=== PATIENT | female | born 1955 | race Caucasian/White ===

== ENCOUNTER 2017-10-04 10:06 | Outpatient (CLI) | payer OTHER | END 2017-10-04 10:07 | disposition home or self-care (01) | LOC: BICMAMMO 10:06 | PROVIDERS: ATTEND Family Medicine | DX: Z12.31 Encounter for screening mammogram for malignant neoplasm of breast (principal); R92.1 Mammographic calcification found on diagnostic imaging of breast; Z80.3 Family history of malignant neoplasm of breast | CPT/HCPCS: 77063; 77067 ==

== ENCOUNTER 2017-10-10 09:55 | Outpatient (CLI) | payer OTHER | END 2017-10-10 09:56 | disposition home or self-care (01) | LOC: BICMAMMO 09:55 | PROVIDERS: ATTEND Family Medicine | DX: R92.8 Other abnormal and inconclusive findings on diagnostic imaging of breast (principal); N63.20 Unspecified lump in the left breast, unspecified quadrant; R92.1 Mammographic calcification found on diagnostic imaging of breast; Z80.3 Family history of malignant neoplasm of breast | CPT/HCPCS: G0206-LT; G0279 ==

== ENCOUNTER 2019-03-24 08:21 | Outpatient (CLI) | payer MEDICARE ==
--- NOTE | 2019-03-24 09:09 | MMO ---
Bilateral MAMMO Bilat Screen [facility]. CLINICAL HISTORY: Patient is 64 years old and is seen for screening. The patient has the following family history of breast cancer: mother. The patient has no personal history of cancer. VIEWS: The views performed were: bilateral craniocaudal; bilateral craniocaudal with tomosynthesis; and bilateral mediolateral oblique with tomosynthesis. FILMS COMPARED: The present examination has been compared to prior imaging studies performed at [facility] on 10/04/2017 and 10/10/2017, and at [facility] on 05/03/2011. MAMMOGRAM FINDINGS: There are scattered fibroglandular densities. Benign calcifications are noted bilaterally. There are no suspicious masses, suspicious calcifications, or new areas of architectural distortion. IMPRESSION: THERE IS NO MAMMOGRAPHIC EVIDENCE OF MALIGNANCY. A ROUTINE FOLLOW-UP MAMMOGRAM IN 1 YEAR IS RECOMMENDED. THE RESULTS OF THIS EXAM WERE SENT TO THE PATIENT. ACR BI-RADS Category 2 - Benign finding MAMMOGRAPHY NOTE: 1. A negative mammogram report should not delay a biopsy if a dominant of clinically suspicious mass is present. 2. Approximately 10% to 15% of breast cancers are not detected by mammography. 3. Adenosis and dense breasts may obscure an underlying neoplasm. Reported by: Mandy WINTERS Electonically Signed: [id number]
== END 2019-03-24 08:22 | disposition home or self-care (01) ==
LOC: BICMAMMO 08:21
PROVIDERS: ATTEND Family Medicine
DX: Z12.31 Encounter for screening mammogram for malignant neoplasm of breast (principal); Z80.3 Family history of malignant neoplasm of breast
CPT/HCPCS: 77063; 77067

== ENCOUNTER 2021-08-07 09:05 | Inpatient (IN) | payer MEDICARE ==
[2021-08-07] MEDS ORDERED: Heparin 1,000 UNITS/ML VIAL ONE (09:44)
[2021-08-07 12:20] VITALS: BMI 44.1
[2021-08-07] MEDS ORDERED: Ondansetron ODT 4 MG TAB PO PRN (12:23)
[2021-08-07] MEDS ORDERED: hydrALAZINE 20 MG/ML VIAL SLOW IVP PRN (12:23)
[2021-08-07] MEDS ORDERED: Ondansetron PF 4 MG/2 ML Vial IVP PRN (12:23)
[2021-08-07] MEDS: Pantoprazole 40 MG VIAL IVP SCH (12:58)
[2021-08-07] MEDS: Sodium Chloride 0.9% 1,000 ML IV SCH (13:01)
[2021-08-07] MEDS ORDERED: GoLYTELY 4,000 ml Bottle PO SCH (13:45)
[2021-08-07] MEDS: Pramipexole Di-HCl 0.125 MG TAB PO SCH ×2 (14:48→21:37)
[2021-08-07] MEDS: Acetaminophen 500 MG TAB PO PRN (16:35)
[2021-08-07 16:43] LABS: SARS-CoV-2 PCR by NAA Not Detected (NotDetected)
[2021-08-07 20:40] LABS: Hemoglobin 8.2 g/dL (12.0-16.0); Platelet Count 202 thou/uL (130-400)
[2021-08-08] MEDS: Pantoprazole 40 MG VIAL IVP SCH ×2 (00:18→13:12)
[2021-08-08] MEDS ORDERED: Pramipexole Di-HCl 0.125 MG TAB PO SCH (01:24)
[2021-08-08] MEDS: Sodium Chloride 0.9% 1,000 ML IV SCH ×2 (01:49→15:03)
[2021-08-08 07:00] LABS: #Eosinphils 0.2 thou/uL (0.0-0.7); #Lymphocytes 2.9 thou/uL (1.20-3.40); #Monocytes 0.7 thou/uL (0.11-0.59); #Neutrophils 3.3 thou/uL (1.40-6.50); %Eosinophils 3.4 % (0.0-10.0); %Lymphocytes 40.4 % (21.0-51.0); %Monocytes 9.7 % (0.0-10.0); %Neutrophils 46.5 % (42.0-75.0); Hemoglobin 7.7 g/dL (12.0-16.0); Mean Corpuscular HGB CONC 33.9 g/dL (32.0-36.0); Mean Corpuscular Volume 91.5 fL (78.0-98.0); Mean Platelet Volume 6.1 fL (7.4-10.4); Platelet Count 254 thou/uL (130-400); RBC Distribution Width 12.9 % (11.5-14.5); Red Blood Cell (RBC) Count 2.48 mill/uL (4.20-5.40); White Blood Cell (WBC) Count 7.1 thou/uL (4.8-10.8)
[2021-08-08 07:04] LABS: ALT (SGPT) 23 U/L (8-55); AST (SGOT) 23 U/L (5-34); Albumin 2.9 g/dL (3.4-4.8); Alkaline Phosphatase 55 U/L (40-110); Anion Gap 12 mmol/L (10-20); BUN (Urea Nitrogen) 8 mg/dL (9.8-20.1); Bilirubin, Total 0.3 mg/dL (0.2-1.2); Calc. Creatinine Clearance 146 mL/min (70-130); Calcium 7.3 mg/dL (7.8-10.44); Carbon Dioxide 21 mmol/L (23-31); Chloride 112 mmol/L (98-107); Globulin 1.9 g/dL (2.4-3.5); Glucose 139 mg/dL (80-115); Potassium 3.2 mmol/L (3.5-5.1); Protein, Total 4.8 g/dL (5.8-8.1); Sodium 142 mmol/L (136-145)
[2021-08-08] MEDS: Pramipexole Di-HCl 0.25 MG TAB PO SCH ×3 (09:44→20:11)
[2021-08-08] MEDS ORDERED: Fentanyl 100 MCG/2 ML VIAL ONE (10:52)
[2021-08-08] MEDS ORDERED: Lidocaine 1% PF 5 ML VIAL ONE (11:00)
[2021-08-08] MEDS ORDERED: PROPOFOL 200 MG/20 ML VIAL ONE (11:00)
[2021-08-08] MEDS: Acetaminophen 500 MG TAB PO PRN (18:07)
[2021-08-08] MEDS ORDERED: Non-Formulary Item 1 EACH (Pramipexole Di-Hcl [Mirapex] 0.5 MG Tablet) PO SCH (21:00)
[2021-08-08 22:21] LABS: Troponin I 0.015 ng/mL (< 0.028)
[2021-08-09 05:01] LABS: Hemoglobin 5.2 g/dL (12.0-16.0)
[2021-08-09 05:29] LABS: Anion Gap 8 mmol/L (10-20); BUN (Urea Nitrogen) 6 mg/dL (9.8-20.1); Calc. Creatinine Clearance 138 mL/min (70-130); Calcium 7.2 mg/dL (7.8-10.44); Carbon Dioxide 23 mmol/L (23-31); Chloride 113 mmol/L (98-107); Glucose 157 mg/dL (80-115); Sodium 141 mmol/L (136-145)
[2021-08-09 05:34] LABS: Potassium 2.9 mmol/L (3.5-5.1)
[2021-08-09] MEDS ORDERED: Electrolyte Replacement Protocol 1 EACH FS SCH (06:45)
[2021-08-09 07:25] LABS: Magnesium 1.8 mg/dL (1.6-2.6)
[2021-08-09] MEDS ORDERED: Magnesium 2 GM/50 ML 2 GM in Premix Bag 1 BAG IVPB SCH (08:00)
[2021-08-09] MEDS: Rosuvastatin 20 MG TAB PO SCH (08:09)
[2021-08-09] MEDS: Potassium Chloride 20 MEQ TAB PO SCH ×2 (08:09→12:39)
[2021-08-09] MEDS: Pramipexole Di-HCl 0.25 MG TAB PO SCH ×3 (08:10→20:35)
[2021-08-09 10:01] LABS: Hemoglobin 6.1 g/dL (12.0-16.0)
[2021-08-09 13:36] LABS: Hemoglobin 7.6 g/dL (12.0-16.0)
[2021-08-10 08:17] LABS: Hemoglobin 6.6 g/dL (12.0-16.0)
[2021-08-10 08:33] LABS: ALT (SGPT) 20 U/L (8-55); AST (SGOT) 22 U/L (5-34); Albumin 2.7 g/dL (3.4-4.8); Alkaline Phosphatase 49 U/L (40-110); Anion Gap 9 mmol/L (10-20); BUN (Urea Nitrogen) 8 mg/dL (9.8-20.1); Bilirubin, Total 0.3 mg/dL (0.2-1.2); Calc. Creatinine Clearance 136 mL/min (70-130); Calcium 7.4 mg/dL (7.8-10.44); Carbon Dioxide 24 mmol/L (23-31); Chloride 112 mmol/L (98-107); Globulin 1.7 g/dL (2.4-3.5); Glucose 144 mg/dL (80-115); Potassium 3.7 mmol/L (3.5-5.1); Protein, Total 4.4 g/dL (5.8-8.1); Sodium 141 mmol/L (136-145)
[2021-08-10] MEDS: Pramipexole Di-HCl 0.25 MG TAB PO SCH (09:35)
[2021-08-10] MEDS: Rosuvastatin 20 MG TAB PO SCH (09:36)
[2021-08-10] MEDS ORDERED: Magnesium 2 GM/50 ML 2 GM in Premix Bag 1 BAG IVPB SCH (10:00)
[2021-08-10 12:59] VITALS: BP 144/74
[2021-08-10 13:52] VITALS: TEMP 98
== END 2021-08-10 15:04 | disposition short-term general hospital (02) | DRG 378 ==
LOC: T4-B 11:38
PROVIDERS: ADMIT Family Medicine; ATTEND Family Medicine
PROC: 0DB68ZX Excision of Stomach, Via Natural or Artificial Opening Endoscopic, Diagnostic (ICD-10-PCS; principal; 2021-08-08)
PROC: 0DJD8ZZ Inspection of Lower Intestinal Tract, Via Natural or Artificial Opening Endoscopic (ICD-10-PCS; 2021-08-08)
PROC: 30233N1 Transfusion of Nonautologous Red Blood Cells into Peripheral Vein, Percutaneous Approach (ICD-10-PCS; 2021-08-09)
DX: K57.31 Diverticulosis of large intestine without perforation or abscess with bleeding (principal); Z20.822 Contact with and (suspected) exposure to COVID-19; Z68.41 Body mass index [BMI] 40.0-44.9, adult; D62 Acute posthemorrhagic anemia; K64.4 Residual hemorrhoidal skin tags; I10 Essential (primary) hypertension; E03.9 Hypothyroidism, unspecified; E66.01 Morbid (severe) obesity due to excess calories; K29.70 Gastritis, unspecified, without bleeding; E87.6 Hypokalemia; Z90.49 Acquired absence of other specified parts of digestive tract; Z98.51 Tubal ligation status; Z79.899 Other long term (current) drug therapy; Z79.52 Long term (current) use of systemic steroids
CPT/HCPCS: 36415; 36430; 78278; 80048; 80053; 83735; 84484; 85014; 85018; 85025; 86850; 86900; 86901; 88305; 93005; 93010; A9604; C9113; J1644; J2704; J3010; J3475; J7050; P9016; U0003; U0005